=== PATIENT | male | born 1985 | race African-American/Black ===

== ENCOUNTER 2016-09-11 12:18 | Emergency (ER) | payer SELFPAY ==
[2016-09-11 12:19] VITALS: BMI 41.1
[2016-09-11] MEDS ORDERED: AMMONIA SPIRITS AMPULE NAS ONE (12:35)
[2016-09-11] MEDS ORDERED: ONDANSETRON HCL 4 MG/2 ML VIAL IV ONE ×2 (12:41→14:15)
[2016-09-11] MEDS ORDERED: NS 1,000 ML IV ONE (12:41)
[2016-09-11] MEDS ORDERED: MORPHINE 4 MG/ML INJECTION IV ONE (12:41)
[2016-09-11 12:59] LABS: AUTOMATED BASOPHIL 0.7 % (0-2); AUTOMATED EOSINOPHIL 1.1 % (0-5); AUTOMATED LYMPH 26.4 % (17-44); AUTOMATED MONOCYTE 8.2 % (3-10); AUTOMATED NEUTROPHIL 63.6 % (45-76); MPV 9.7 fL (7.4-10.4)
[2016-09-11] MEDS ORDERED: Pharmacy Review for Metformin - IV Contrast Given SCH (13:00)
[2016-09-11 13:10] LABS: BLOOD UREA NITROGEN 12 MG/DL (9-20); CALCIUM 10.1 MG/DL (8.4-10.2); CALCULATED OSMOLALITY 271 MOs/Kg (270-290); CHLORIDE 105 mEq/L (98-107); GLUCOSE 100 MG/DL (70-99); SODIUM LEVEL 141 mEq/L (137-146); TOTAL PROTEIN 8.5 G/DL (6.3-8.2)
[2016-09-11 13:24] LABS: ALL NEG? NO
[2016-09-11 13:33] LABS: MDMA* NEG (NEGATIVE); METHAMPHETAMINES NEG (NEGATIVE); OXYCODONE NEG (NEGATIVE)
[2016-09-11 13:49] LABS: LEUKOCYTES/URINE NEG (NEGATIVE); NITRITE/URINE NEG (NEGATIVE); RBC/URINE 0-2 (0-2); URINE OCCULT BLOOD NEG (NEG/TRACE); WBC/URINE 0-2 (0-2)
[2016-09-11] MEDS ORDERED: KETOROLAC TROMETH 30 MG/ML VIAL IV ONE (14:15)
[2016-09-11 14:16] VITALS: BP 134/75; PULSE 68
--- NOTE | 2016-09-11 14:18 | DIRPT ---
CLINICAL DATA: Left lower quadrant pain for 1 day. EXAM: CT ABDOMEN AND PELVIS WITH CONTRAST TECHNIQUE: Multidetector CT imaging of the abdomen and pelvis was performed using the standard protocol following bolus administration of intravenous contrast. CONTRAST: 100 mL Isovue 370 COMPARISON: 08/02/2015 FINDINGS: Lower chest: No acute findings. Hepatobiliary: No masses or other significant abnormality. Gallbladder is unremarkable. Pancreas: No mass, inflammatory changes, or other significant abnormality. Spleen: Within normal limits in size and appearance. Adrenals/Urinary Tract: No masses identified. No evidence of hydronephrosis. Stomach/Bowel: No evidence of obstruction, inflammatory process, or abnormal fluid collections. Right lower quadrant surgical clips seen from prior appendectomy. Vascular/Lymphatic: No pathologically enlarged lymph nodes. No evidence of abdominal aortic aneurysm. Reproductive: No mass or other significant abnormality. Other: None. Musculoskeletal: No suspicious bone lesions identified. IMPRESSION: Negative. No acute findings or other significant abnormality identified. Electronically Signed By: Semaj Branch M.D. On: 09/11/2016 14:15
--- NOTE | 2016-09-11 14:23 | EDPRACDOC ---
- General Information Chief Complaint: Abdominal Pain Stated Complaint: DIAPHORETIC GOING TO PASS OUT Time Seen by Provider: 09/11/16 12:24 Information Source: Patient, Parent Mode Of Arrival: Car Home Medications: Home Medications Ketorolac Tromethamine [Toradol] 10 mg PO Q6H PRN #20 tab 09/11/16 No Home Medications 09/11/16 Ondansetron [Zofran Odt] 4 mg PO Q6H PRN #20 tab.rapdis 09/11/16 Allergies/Adverse Reactions: Allergies Allergy/AdvReac Type Severity Reaction Status Date / Time No Known Allergies Allergy Verified 09/11/16 12:50 - History of Present Illness Onset: this AM HPI: PT PRESENTS WITH LLQ ABDOMINAL PAIN THAT HE STATES BEGAN THIS MORNING WHEN HE WOKE UP. STATES HE PAIN IS SHARP, STABBING IN NATURE. PT STATES HE HAS VOMITED MULTIPLE TIMES THIS MORNING. DENIES DIARRHEA, FEVER OR CHILLS. Pain Location: Reports: LLQ Pain Context: Reports: While Asleep Pain Severity: Moderate Pain Quality: Reports: Sharp, Stabbing Pain Radiation: Reports: No Radiation Adult Abdominal History: Denies: Abdominal Surgery, Urolithiasis, Bowel Obstruction, Similar Pain (dx) Modifying Factors: improves with: Nothing Associated Signs & Symptoms: Reports: Nausea, Vomiting Oral Intake: Decreased Urinary Output: Normal ED Past Medical History - History Reviewed Yes Nurses notes reviewed and agree except as marked - Patient Medical History Cardiac History: Reports: Hypertension GI/ History: Reports: Gastroesophageal Reflux Psychological History: Denies: Depression Surgical History: Reports: Hernia Surgery - Social Medical History Smoking Status: Heavy tobacco smoker (5 or more cigarettes/day or daily pipe/ cigar) Social History: Reports: Marijuana Use EDM Review of Systems - Review of Systems ROS Negative Except as Marked: Yes All systems reviewed and were negative except as marked - Physical Exam Constitutional: Alert, Well nourished, Well appearing Oriented to: Time, Person, Place Last recorded Vital Signs: Last Vital Signs Temp Pulse 68 09/11/16 14:15 Resp 18 09/11/16 14:15 BP 134/75 09/11/16 14:15 Pulse Ox 96 09/11/16 14:15 Oxygen Pulse Oxygen Saturation 96 O2 Device Room Air Oxygen Flow Rate Fraction of Inspired Oxygen ( FIO2) - HEENT Head: Normal ( normocephalic) Eye Exam: Normal (PERRL, EOMI, Sclera white) Oropharynx: Normal (Pharynx:Moist without exudate,Gums-no swelling) Nose: No Symptoms Reported (septum midline) Neck: Normal (FROM, trachea at midline) - Respiratory/Cardiovascular Respiratory: Normal - CTA (BBS clear to auscultation without adventitious sounds ) Cardiovascular: Normal (RRR without murmur, gallop or rub) - GI Auscultation: Normal (NABS) Palpation: Normal (Soft,No rebound or guarding, non distended) Tenderness: Moderate, LLQ Beaver's Sign: Negative Rectal Exam: Deferred - Musculoskeletal Back: Normal (Non-Tender) Extremities: Normal (Normal tone, Pulses 2+ No cyanosis or edema, FROM) - Integumentary Skin: Normal, Warm, Dry Lymphatics: Normal (no adenopathy) - Neurologic Memory Impaired: Normal Motor Function: Normal (Normal tone, Pulses 2+ No cyanosis or edema, FROM) Cranial Nerve: Normal (CN II-X11 intact sensation, strength 5/5) Cerebellar: Normal Mood Description: Normal Perception: Normal - Differential Diagnosis Diverticulitis, Gastroenteritis, UTI - Results All Results Reviewed and Normal except as Highlighted below: Yes 09/11/16 12:30 09/11/16 12:30 WBC 12.1 xk/uL (3.8-10.8) H 09/11/16 12:30 RBC 5.39 xM/uL (4.70-6.10) 09/11/16 12:30 Hgb 16.3 g/dL (14.0-18.0) 09/11/16 12:30 Hct 48.8 % (42-52) 09/11/16 12:30 MCV 91 fL (80-94) 09/11/16 12:30 MCH 30.2 pg (27-32) 09/11/16 12:30 MCHC 33.4 g/dl (33-36) 09/11/16 12:30 RDW 14.1 % (11.5-14.5) 09/11/16 12:30 Plt Count 273 xk/uL (130-400) 09/11/16 12:30 MPV 9.7 fL (7.4-10.4) 09/11/16 12:30 Neut % (Auto) 63.6 % (45-76) 09/11/16 12:30 Lymph % (Auto) 26.4 % (17-44) 09/11/16 12:30 [place] % (Auto) 8.2 % (3-10) 09/11/16 12:30 Eos % (Auto) 1.1 % (0-5) 09/11/16 12:30 Baso % (Auto) 0.7 % (0-2) 09/11/16 12:30 Absolute Neuts (auto) 7.62 xk/uL (1.7-8.2) 09/11/16 12:30 Absolute Lymphs (auto) 3.15 xk/uL (0.65-4.75) 09/11/16 12:30 Sodium 141 mEq/L (137-146) 09/11/16 12:30 Potassium 4.3 mEq/L (3.5-5.1) 09/11/16 12:30 Chloride 105 mEq/L (98-107) 09/11/16 12:30 Carbon Dioxide 24 mMOL/L (22-33) 09/11/16 12:30 Anion Gap 16 mEq/L (8-16) 09/11/16 12:30 BUN 12 MG/DL (9-20) 09/11/16 12:30 Creatinine 0.90 MG/DL (0.66-1.25) 09/11/16 12:30 Estimated GFR (MDRD) > 60 mL/min (>=60) 09/11/16 12:30 Glucose 100 MG/DL (70-99) H 09/11/16 12:30 Calculated Osmolality 271 MOs/Kg (270-290) 09/11/16 12:30 Lactic Acid 2.0 mEq/L (0.7-2.1) 09/11/16 12:58 Calcium 10.1 MG/DL (8.4-10.2) 09/11/16 12:30 Total Bilirubin 0.6 MG/DL (0.2-1.3) 09/11/16 12:30 AST 26 IU/L (17-59) 09/11/16 12:30 ALT 60 IU/L (21-72) 09/11/16 12:30 Alkaline Phosphatase 74 IU/L (38-126) 09/11/16 12:30 Total Protein 8.5 G/DL (6.3-8.2) H 09/11/16 12:30 Albumin 4.9 G/DL (3.5-5.0) 09/11/16 12:30 Lipase 55 U/L (23-300) 09/11/16 12:30 Urine Color Yellow 09/11/16 13:15 Urine Clarity Clear 09/11/16 13:15 Urine pH 9.0 (5.0-8.0) H 09/11/16 13:15 Ur Specific [place] </=1.005 (1.003-1.035) 09/11/16 13:15 Urine Protein 2+ (NEG/TRACE) H 09/11/16 13:15 Urine Glucose (UA) Neg (NEGATIVE) 09/11/16 13:15 Urine Ketones 1+ (NEGATIVE) H 09/11/16 13:15 Urine Occult Blood Neg (NEG/TRACE) 09/11/16 13:15 Urine Nitrite Neg (NEGATIVE) 09/11/16 13:15 Urine Bilirubin Neg (NEGATIVE) 09/11/16 13:15 Urine Urobilinogen <2.0 MG/DL (0-1) 09/11/16 13:15 Ur Leukocyte Esterase Neg (NEGATIVE) 09/11/16 13:15 Urine RBC 0-2 (0-2) 09/11/16 13:15 Urine WBC 0-2 (0-2) 09/11/16 13:15 Urine Mucus Occ (NEG/OCC) 09/11/16 13:15 Urine Opiates Screen *positive* (NEGATIVE) H 09/11/16 13:15 Ur Oxycodone Screen Neg (NEGATIVE) 09/11/16 13:15 Urine Methadone Screen Neg (NEGATIVE) 09/11/16 13:15 Ur Barbiturates Screen Neg (NEGATIVE) 09/11/16 13:15 Ur Tricyclics Screen Neg (NEGATIVE) 09/11/16 13:15 Ur Phencyclidine Scrn Neg (NEGATIVE) 09/11/16 13:15 Ur Amphetamines Screen Neg (NEGATIVE) 09/11/16 13:15 U Methamphetamines Scrn Neg (NEGATIVE) 09/11/16 13:15 Urine MDMA Screen Neg (NEGATIVE) 09/11/16 13:15 U Benzodiazepines Scrn Neg (NEGATIVE) 09/11/16 13:15 Urine Cocaine Screen Neg (NEGATIVE) 09/11/16 13:15 Ur THC Screen *positive* (NEGATIVE) H 09/11/16 13:15 Lab Results 09/11/16 09/11/16 09/11/16 13:15 13:15 12:58 WBC RBC Hgb Hct MCV MCH MCHC RDW Plt Count MPV Neut % (Auto) Lymph % (Auto) [place] % (Auto) Eos % (Auto) Baso % (Auto) Absolute Neuts (auto) Absolute Lymphs (auto) Sodium Potassium Chloride Carbon Dioxide Anion Gap BUN Creatinine Estimated GFR (MDRD) Glucose Calculated Osmolality Lactic Acid 2.0 Calcium Total Bilirubin AST ALT Alkaline Phosphatase Total Protein Albumin Lipase Urine Color Yellow Urine Clarity Clear Urine pH 9.0 H Ur Specific [place] </=1.005 Urine Protein 2+ H Urine Glucose (UA) Neg Urine Ketones 1+ H Urine Occult Blood Neg Urine Nitrite Neg Urine Bilirubin Neg Urine Urobilinogen <2.0 Ur Leukocyte Esterase Neg Urine RBC 0-2 Urine WBC 0-2 Urine Mucus Occ Urine Opiates Screen *positive* H Ur Oxycodone Screen Neg Urine Methadone Screen Neg Ur Barbiturates Screen Neg Ur Tricyclics Screen Neg Ur Phencyclidine Scrn Neg Ur Amphetamines Screen Neg U Methamphetamines Scrn Neg Urine MDMA Screen Neg U Benzodiazepines Scrn Neg Urine Cocaine Screen Neg Ur THC Screen *positive* H 09/11/16 09/11/16 12:30 12:30 WBC 12.1 H RBC 5.39 Hgb 16.3 Hct 48.8 MCV 91 MCH 30.2 MCHC 33.4 RDW 14.1 Plt Count 273 MPV 9.7 Neut % (Auto) 63.6 Lymph % (Auto) 26.4 [place] % (Auto) 8.2 Eos % (Auto) 1.1 Baso % (Auto) 0.7 Absolute Neuts (auto) 7.62 Absolute Lymphs (auto) 3.15 Sodium 141 Potassium 4.3 Chloride 105 Carbon Dioxide 24 Anion Gap 16 BUN 12 Creatinine 0.90 Estimated GFR (MDRD) > 60 Glucose 100 H Calculated Osmolality 271 Lactic Acid Calcium 10.1 Total Bilirubin 0.6 AST 26 ALT 60 Alkaline Phosphatase 74 Total Protein 8.5 H Albumin 4.9 Lipase 55 Urine Color Urine Clarity Urine pH Ur Specific [place] Urine Protein Urine Glucose (UA) Urine Ketones Urine Occult Blood Urine Nitrite Urine Bilirubin Urine Urobilinogen Ur Leukocyte Esterase Urine RBC Urine WBC Urine Mucus Urine Opiates Screen Ur Oxycodone Screen Urine Methadone Screen Ur Barbiturates Screen Ur Tricyclics Screen Ur Phencyclidine Scrn Ur Amphetamines Screen U Methamphetamines Scrn Urine MDMA Screen U Benzodiazepines Scrn Urine Cocaine Screen Ur THC Screen Decision Time to Discharge: 14:24 - Departure Disposition: Home Condition: Stable Final Diagnosis: Abdominal pain Instructions: Acute Abdominal Pain (ED) Education/Counseling Given To: Patient Education/Counseling Given Regarding: Diagnosis, Treatment, Prognosis, Follow Up Referrals: Fam Summers MD [Staff Physician] - One Week Prescriptions: Ketorolac Tromethamine [Toradol] 10 mg PO Q6H PRN #20 tab PRN Reason: Pain Ondansetron [Zofran Odt] 4 mg PO Q6H PRN #20 tab.rapdis PRN Reason: Nausea/Vomiting Additional Instructions: Drink sips of Gatorade every 2-3 minutes while awake. Do NOT drink large volumes of fluid at once. If you vomit, take the nausea-vomiting medicine prescribed, wait ~ 30 minutes, and restart the sipping process. Return to the Emergency Department if you think you are getting dehydrated, have persistent abdominal pain that is unrelenting, have worse or different symptoms, or any concerns.
== END 2016-09-11 13:20 | disposition home or self-care (01) ==
LOC: ED 12:18
DX: R10.9 Unspecified abdominal pain (principal)
CPT/HCPCS: 36415; 74177; 80053; 80307; 81001; 83605; 83690; 85025; 96374; 96375; 96376; 99284; A9698; J1885; J2270; J2405; J3490